=== PATIENT | female | born 1985 | race African-American/Black ===

== ENCOUNTER 2019-04-01 10:34 | Emergency (ER) | payer OTHER ==
[~2019-04-01] VITALS: Ht 165.1 cm; Wt 86.0 kg
[2019-04-01] MEDS ORDERED: HYDROCODONE/ACETAMINOPHEN 5/325MG TABLET PO ONE (12:30)
[2019-04-01 13:03] VITALS: BP 106/67
== END 2019-04-01 14:03 | disposition home or self-care (01) ==
LOC: ER 10:34
DX: S40.021A Contusion of right upper arm, initial encounter (principal); W01.0XXA Fall on same level from slipping, tripping and stumbling without subsequent striking against object, initial encounter; Y93.89 Activity, other specified; Y92.89 Other specified places as the place of occurrence of the external cause; Y99.8 Other external cause status; Z88.0 Allergy status to penicillin
CPT/HCPCS: 73080; 73090; 99283